=== PATIENT | female | born 1965 ===

== ENCOUNTER 2017-08-11 08:40 | Observation (INO) | payer OTHER ==
[2017-08-11] MEDS ORDERED: Aspirin 325 mg EC Tablets PO STA (08:56)
[2017-08-11] MEDS ORDERED: Nitroglycerin 2% Ointment Foilpak UD TOP STA (08:56)
--- NOTE | 2017-08-11 08:56 | C.PDOC ---
History Of Present Illness NEW ONSET CP SINCE LAST NIGHT. CONSTANT, PERSIST NO ASSOC W ACTIVITY EATING OR MOVEMENT. L SIDED RADIATION BACK. DENIES HO PRIOR CAD. +ASSOC NAUSEA, NOW RESOLVED. EXAM NEG Time Seen by Provider: 08/11/17 08:49 History Per: Patient History/Exam Limitations: no limitations Onset/Duration Of Symptoms: Days Current Symptoms Are (Timing): Still Present Associated Symptoms: Nausea. denies: Diaphoresis Recent travel outside of the [place]: No Past Medical History Reviewed: Historical Data, Nursing Documentation, Vital Signs Vital Signs: Last Vital Signs Temp 98.3 F 08/11/17 08:53 Pulse 94 H 08/11/17 08:53 Resp 16 08/11/17 08:53 BP 157/96 H 08/11/17 08:53 Pulse Ox 98 08/11/17 09:08 - Medical History PMH: No Chronic Diseases Family History: States: Unknown Family Hx - Social History Hx Alcohol Use: Yes Hx Substance Use: No - Immunization History Hx Tetanus Toxoid Vaccination: Yes Hx Influenza Vaccination: Yes Hx Pneumococcal Vaccination: Yes Review Of Systems Except As Marked, All Systems Reviewed And Found Negative. Constitutional: Negative for: Fever, Chills Cardiovascular: Positive for: Chest Pain. Negative for: Palpitations Respiratory: Negative for: Cough, Shortness of Breath Gastrointestinal: Positive for: Nausea (RESOLVED). Negative for: Vomiting, Abdominal Pain Physical Exam - Physical Exam Appears: Non-toxic, No Acute Distress Skin: Normal Color, Warm, Dry Head: Atraumatic, Normacephalic Oral Mucosa: Moist Chest: Symmetrical Cardiovascular: Rhythm Regular Respiratory: Normal Breath Sounds, No Accessory Muscle Use, No Rales, No Rhonchi , No Wheezing Gastrointestinal/Abdominal: Soft, No Tenderness, No Guarding, No Rebound Back: Normal Inspection Extremity: Normal ROM, Capillary Refill (< 2 SEC.) Neurological/Psych: Oriented x3, Normal Speech, Normal Cognition ED Course And Treatment - Laboratory Results Result Diagrams: 08/11/17 09:36 08/11/17 09:36 ECG: Interpreted By Me ECG Rhythm: Sinus Rhythm ECG Interpretation: No Changes From Prior Rate From EC (bpm) O2 Sat by Pulse Oximetry: 98 (RA) Pulse Ox Interpretation: Normal - Radiology CXR: Interpreted by Me CXR Interpretation: Yes: No Acute Disease Progress - Re-Evaluation Re-evaluation Note: 08/11/17 10:[address] CM WILL ADMIT - Data Reviewed Data Reviewed: Lab, Diagnostic imaging, EKG, Old records Disposition Counseled Patient/Family Regarding: Studies Performed, Diagnosis - Disposition Disposition: HOSPITALIZED Disposition Time: 10:41 Condition: STABLE - POA Present On Arrival: Poor Glycemic Control - Clinical Impression Clinical Impression: Chest pain - Scribe Statement The provider has reviewed the documentation as recorded by the Scribe SM All medical record entries made by the Scribe were at my direction and personally dictated by me. I have reviewed the chart and agree that the record accurately reflects my personal performance of the history, physical exam, medical decision making, and the department course for this patient. I have also personally directed, reviewed, and agree with the discharge instructions and disposition. Decision To Admit - Pt Status Changed To: Hospital Disposition Of: Observation - . Bed Request Type: Telemetry Admitting Physician: Juliana Cm Patient Diagnosis: Chest pain
[2017-08-11] MEDS ORDERED: Nitroglycerin 2% Ointment Foilpak UD TOP ONE (09:11)
[2017-08-11] MEDS ORDERED: Aspirin 325 mg EC Tablets PO ONE (09:12)
[2017-08-11 09:41] LABS: BASO # 0.1 K/uL (0.0-0.2); EOS # 0.2 K/uL (0.0-0.7); EOS % 2.4 % (0.0-4.0); LYMPH # 2.5 K/uL (1.0-4.3); LYMPH % 29.2 % (20.0-40.0); MEAN CELL VOLUME 84.3 fL (81.0-99.0); MEAN CORPUSCULAR HEMOGLOBIN 28.7 pg (27.0-31.0); MEAN PLATELET VOLUME 10.6 fL (7.2-11.7); MONO # 0.5 K/uL (0.0-0.8); MONO % 6.3 % (0.0-10.0); RED CELL DISTRIBUTION WIDTH 13.2 % (11.5-14.5); WHITE BLOOD COUNT 8.7 K/uL (4.8-10.8)
[2017-08-11 09:54] LABS: CHLORIDE 105 mmol/L (98-107); SODIUM 139 mmol/L (132-148)
[2017-08-11 09:55] LABS: POTASSIUM 4.6 mmol/L (3.6-5.2)
[2017-08-11 09:57] LABS: ALB/GLOB RATIO 1.5 (1.0-2.1); ALKALINE PHOSPHATASE 84 U/L (38-126); ALT/SGPT 90 U/L (9-52); AST/SGOT 91 U/L (14-36); BILIRUBIN,TOTAL 0.8 mg/dL (0.2-1.3); BLOOD UREA NITROGEN 6 mg/dL (7-17); CALCIUM 8.9 mg/dl (8.6-10.4); CARBON DIOXIDE 23 mmol/L (22-30); GFR AFRICAN-AMERICAN > 60; GLUCOSE,RANDOM 144 mg/dL (65-105)
--- NOTE | 2017-08-11 10:39 | RAD ---
PROCEDURE: CHEST RADIOGRAPH, 1 VIEW HISTORY: chest pain COMPARISON: None available. FINDINGS: LUNGS: Mild venous congestion. PLEURA: No pneumothorax or pleural fluid seen. CARDIOVASCULAR: Normal. OSSEOUS STRUCTURES: No significant abnormalities. VISUALIZED UPPER ABDOMEN: Normal. OTHER FINDINGS: None. IMPRESSION: Mild venous congestion.
--- NOTE | 2017-08-11 13:11 | CP.PCM.HP ---
<Na Umaña - Last Filed: 08/11/17 19:14> History of Present Illness - History of Present Illness History of Present Illness: Patient is a 52 y/o F with PMH of DM and HTN presents to the ED with chest pain for the past 2 days. The pain started yesterday 7:30 am while resting at home. Today she decided to come to ER because the pain has been constant with pressure localized on the left side of the chest. She admitted to radiation of pain around the left shoulder, posterior region of scapula and pain traveling down the left arm with tingling in the fingers. The worst pain level was yesterday at 9/10 intensity and today the pain is 6/10. Today the pain is described more pressure like rather than sharp pain. When pain started initially she felt Nauseous/Diaphores/SULLIVAN/Weakness/SOB/Palpitation/Back pain/Leg pain. Patient denies any f/c/v/d/c/recent travel or sickness. Patient was seen in the ER one year ago for similar episode was discharged because CA was ruled out. PMH: HTN, HLD, DM Allergies: NKDA Medication: Insulin, glipizide PSH: Tubal [id number] Family Hx: Mother of natural cause, Sister CVA Social Hx: Smokes 1 cigarette for past 3 years, drinks alcohol socially, not employed, lives with BF Present on Admission - Present on Admission Any Indicators Present on Admission: No Review of Systems - Review of Systems All systems: reviewed and no additional remarkable complaints except (as per HPI ) Past Patient History - Infectious Disease Hx of Infectious Diseases: None - Past Social History Smoking Status: Light Smoker < 10 Cigarettes Daily - CARDIAC Hx Circulatory Problems: Yes - ENDOCRINE/METABOLIC Hx Diabetes Mellitus Type 2: Yes - PSYCHIATRIC Hx Substance Use: No - SURGICAL HISTORY Hx Surgeries: No - ANESTHESIA Hx Anesthesia: No Meds Allergies/Adverse Reactions: Allergies Allergy/AdvReac Type Severity Reaction Status Date / Time No Known Allergies Allergy Verified 01/01/16 03:45 Results - Vital Signs Recent Vital Signs: Last Vital Signs Temp 98.3 F 08/11/17 08:53 Pulse 94 H 08/11/17 08:53 Resp 16 08/11/17 08:53 BP 157/96 H 08/11/17 08:53 Pulse Ox 98 08/11/17 10:41 - Labs Result Diagrams: 08/11/17 09:36 08/11/17 09:36 Assessment & Plan - Assessment and Plan (Free Text) Assessment: Chest pain * IDA score 3 (CAD risk factors; ASA; Chest pain) * observation on telemetry * ASA 325 mg in ED; ASA 81 mg PO QD * lisinopril 2.5 PO QD (hold if SBP <100 or HR < 60) * Metoprolol 12.5 PO Q12 * O2 2L PRN * F/U HbA1c, TSH, lipid panel, UDS, Echo, NIKHIL x2 with EKG, D-Dimer * Consult Cardio (Dr. Rosas) Diabetes * F/U A1c and lipid panel as above * ISS * Accuchecks QACHS HTN * Monitor vitals PPX * Lovenox 40 mg SC QD * Pepcid 20 mg PO BID <Juliana Evans V - Last Filed: 08/11/17 23:57> Results - Vital Signs Recent Vital Signs: Last Vital Signs Temp 98.4 F 08/11/17 15:12 Pulse 90 08/11/17 15:12 Resp 20 08/11/17 15:12 BP 110/69 08/11/17 15:12 Pulse Ox 95 08/11/17 15:12 - Labs Result Diagrams: 08/11/17 09:36 08/11/17 09:36 Labs: Laboratory Results - last 24 hr 08/11/17 08/11/17 08/11/17 14:45 15:13 15:13 D-Dimer, Quantitative < 200 POC Glucose (mg/dL) Total Creatine Kinase 57 CK-MB (Mass) 0.36 Troponin I, Quant < 0.0120 Urine Opiates Screen Negative Urine Methadone Screen Negative Ur Barbiturates Screen Negative Ur Phencyclidine Scrn Negative Ur Amphetamines Screen Negative U Benzodiazepines Scrn Negative U Oth Cocaine Metabols Negative U Cannabinoids Screen Negative 08/11/17 08/11/17 16:43 21:02 D-Dimer, Quantitative POC Glucose (mg/dL) 131 H 269 H Total Creatine Kinase CK-MB (Mass) Troponin I, Quant Urine Opiates Screen Urine Methadone Screen Ur Barbiturates Screen Ur Phencyclidine Scrn Ur Amphetamines Screen U Benzodiazepines Scrn U Oth Cocaine Metabols U Cannabinoids Screen Attending/Attestation - Attestation I have personally seen and examined this patient.: Yes I have fully participated in the care of the patient.: Yes I have reviewed all pertinent clinical information: Yes Notes (Text): Patient seen in [facility] Bed 12 in the emergency room at 12:20PM and discussed admitting orders with medicine manager of internal. Patient reporting chest pain which occurred all day prior to admission radiating to the left chest and down the arm. Patient reports she took aspirin yesterday. Patient reports chest pain varies with breathing, movement, and hurts without touching the chest pain. Patient appeared to have echocardiogram 2 years ago but cannot recall where or when. Patient has history of diabetes. Patient denies family hx of cardiac complaints. Patient's cardiac risk factors: DM, HTN, current smoker, used aspirin at home, and chest pain during. Discussed admitting orders in detail with medicine manager of internal. Assessment/Plan 1) Chest pain * IDA score 3 (CAD risk factors; ASA; Chest pain) * observation on telemetry * ASA 325 mg in ED; ASA 81 mg PO QDaily * Start lisinopril 2.5 PO QD (hold if SBP <100) * Start Metoprolol 12.5 PO Q12H (hold SBP<100 and HR<60) * Start Crestor 10mg POqHS * O2 2L PRN * F/U HbA1c, TSH, lipid panel, UDS, Echocardiogram, NIKHIL x2 with EKG, Q 6 hours apart, D-Dimer * Consult Cardio (Dr. Rosas) national secretary-->help appreciated 2) Diabetes * F/U A1c and lipid panel in AM * Novolog sliding scale ISS * Accuchecks QACHS 3) Hypertension * Monitor vitals * Start lisinopril 2.5 PO QD (hold if SBP <100) * Start Metoprolol 12.5 PO Q12H (hold SBP<100 and HR<60) 4) PPX * Lovenox 40 mg SC QDaily for DVT ppx * Pepcid 20 mg PO BID for GI ppx
[2017-08-11] MEDS: Enoxaparin 40 mg Syringe SC SCH (15:19)
[2017-08-11 17:13] VITALS: RESP 20
[2017-08-11] MEDS: (Novolog) Insulin Aspart, Recombinant 100 u/ml 10 ml vial SC SCH ×2 (17:15→21:57)
--- NOTE | 2017-08-11 19:39 | CARD ---
APPROVED REPORT EXAM: Two-dimensional and M-mode echocardiogram with Doppler and color Doppler. Other Information Quality : GoodRhythm : NSR INDICATION Chest Pain RISK FACTORS Hypertension Diabetes 2D DIMENSIONS IVSd1.0 (0.7-1.1cm)LVDd4.3 (3.9-5.9cm) PWd1.1 (0.7-1.1cm)LVDs3.1 (2.5-4.0cm) FS (%) 27.1 %LVEF (%)55.1 (>50%) M-Mode DIMENSIONS Left Atrium (MM)3.67 (2.5-4.0cm)Aortic Root3.29 (2.2-3.7cm) Aortic Cusp Exc.2.19 (1.5-2.0cm) Mitral Valve MV E Dgxagncu77.3cm/sMV A Brcjybsn37.7cm/sE/A ratio0.7 TDI E/Lateral E'0.0E/Medial E'0.0 Tricuspid Valve TR Peak Dbnjwxrc690jh/sTR Peak Gr.[id number] <Conclusion> tds. poor window. normal size la,lv & ra rv. normal lv wall motion,thickness,systolic funciton with lvef of 6-55-60%. lv diastolic dysfunciton grade one. sclerotic trileaflet aortic valve. mild mac. mild mr,tr with normal pulmonary pressures. sclerotic aortic root. no pericardial effusion.
[2017-08-12 08:00] VITALS: O2SAT 97
[2017-08-12] MEDS: (Novolog) Insulin Aspart, Recombinant 100 u/ml 10 ml vial SC SCH ×2 (08:30→13:11)
[2017-08-12 08:41] LABS: THYROID STIMULATING HORMONE 4.83 mIU/L (0.46-4.68)
[2017-08-12] MEDS: Enoxaparin 40 mg Syringe SC SCH (10:23)
[2017-08-12 11:20] LABS: BASO # 0.1 K/uL (0.0-0.2); BASO % 0.9 % (0.0-2.0); EOS # 0.2 K/uL (0.0-0.7); EOS % 2.3 % (0.0-4.0); HEMATOCRIT 40.8 % (34.0-47.0); LYMPH # 2.1 K/uL (1.0-4.3); LYMPH % 31.4 % (20.0-40.0); MEAN CELL VOLUME 85.2 fL (81.0-99.0); MEAN CORPUSCULAR HEMOGLOBIN 28.7 pg (27.0-31.0); MEAN CORPUSCULAR HGB CONC 33.7 g/dL (33.0-37.0); MEAN PLATELET VOLUME 11.5 fL (7.2-11.7); MONO # 0.5 K/uL (0.0-0.8); MONO % 7.4 % (0.0-10.0); NRBC % 0.1 % (0.0-2.0); RED CELL DISTRIBUTION WIDTH 13.3 % (11.5-14.5); WHITE BLOOD COUNT 6.6 K/uL (4.8-10.8)
[2017-08-12 11:24] LABS: ALB/GLOB RATIO 1.3 (1.0-2.1); ALKALINE PHOSPHATASE 85 U/L (38-126); ALT/SGPT 92 U/L (9-52); AST/SGOT 74 U/L (14-36); BILIRUBIN,TOTAL 0.7 mg/dL (0.2-1.3); BLOOD UREA NITROGEN 10 mg/dL (7-17); CARBON DIOXIDE 25 mmol/L (22-30); CHLORIDE 100 mmol/L (98-107); GFR AFRICAN-AMERICAN > 60; GLUCOSE,RANDOM 301 mg/dL (65-105); MAGNESIUM 1.8 mg/dL (1.6-2.3); PHOSPHOROUS 3.5 mg/dL (2.5-4.5); POTASSIUM 4.7 mmol/L (3.6-5.2); SODIUM 138 mmol/L (132-148); TOTAL PROTEIN 6.7 g/dL (6.3-8.3)
--- NOTE | 2017-08-12 13:06 | CARD ---
APPROVED REPORT EKG Measurement Heart [id number] <Conclusion> Normal sinus rhythm Prolonged QT Abnormal ECG
[2017-08-12 16:01] VITALS: BP 146/87; PULSE 90; TEMP 98
--- NOTE | 2017-08-12 18:22 | CP.PCM.DIS ---
<Na Umaña - Last Filed: 08/12/17 18:19> Provider - Provider Date of Admission: 08/11/17 11:00 Attending physician: Juliana Evans DO Consults: Dr. Rosas Time Spent in preparation of Discharge (in minutes): 35 Diagnosis - Discharge Diagnosis (1) Chest pain Status: Acute Comment: for more details please see summary Hospital Course - Lab Results Lab Results: Most Recent Lab Values WBC 6.6 K/uL (4.8-10.8) 08/12/17 11:12 RBC 4.78 Mil/uL (3.80-5.20) 08/12/17 11:12 Hgb 13.7 g/dL (11.0-16.0) 08/12/17 11:12 Hct 40.8 % (34.0-47.0) 08/12/17 11:12 MCV 85.2 fL (81.0-99.0) 08/12/17 11:12 MCH 28.7 pg (27.0-31.0) 08/12/17 11:12 MCHC 33.7 g/dL (33.0-37.0) 08/12/17 11:12 RDW 13.3 % (11.5-14.5) 08/12/17 11:12 Plt Count 170 K/uL (130-400) 08/12/17 11:12 MPV 11.5 fL (7.2-11.7) 08/12/17 11:12 Neut % (Auto) 58.0 % (50.0-75.0) 08/12/17 11:12 Lymph % (Auto) 31.4 % (20.0-40.0) 08/12/17 11:12 [place] % (Auto) 7.4 % (0.0-10.0) 08/12/17 11:12 Eos % (Auto) 2.3 % (0.0-4.0) 08/12/17 11:12 Baso % (Auto) 0.9 % (0.0-2.0) 08/12/17 11:12 Neut # 3.8 K/uL (1.8-7.0) 08/12/17 11:12 Lymph # 2.1 K/uL (1.0-4.3) 08/12/17 11:12 [place] # 0.5 K/uL (0.0-0.8) 08/12/17 11:12 Eos # 0.2 K/uL (0.0-0.7) 08/12/17 11:12 Baso # 0.1 K/uL (0.0-0.2) 08/12/17 11:12 PT 10.8 SECONDS (9.7-12.2) 08/11/17 09:36 INR 1.0 08/11/17 09:36 APTT 30 SECONDS (21-34) 08/11/17 09:36 D-Dimer, Quantitative < 200 ng/mlDDU (0-243) 08/11/17 15:13 Sodium 138 mmol/L (132-148) 08/12/17 11:12 Potassium 4.7 mmol/L (3.6-5.2) 08/12/17 11:12 Chloride 100 mmol/L (98-107) 08/12/17 11:12 Carbon Dioxide 25 mmol/L (22-30) 08/12/17 11:12 Anion Gap 17 (10-20) 08/12/17 11:12 BUN 10 mg/dL (7-17) 08/12/17 11:12 Creatinine 0.6 MG/DL (0.7-1.2) L 08/12/17 11:12 Est GFR ( Amer) > 60 08/12/17 11:12 Est GFR (Non-Af Amer) > 60 08/12/17 11:12 POC Glucose (mg/dL) 319 mg/dL (65-110) H 08/12/17 16:48 Random Glucose 301 mg/dL (65-105) H 08/12/17 11:12 Hemoglobin A1c 8.7 % (4.2-6.5) H 08/12/17 12:37 Calcium 9.0 mg/dl (8.6-10.4) 08/12/17 11:12 Phosphorus 3.5 mg/dL (2.5-4.5) 08/12/17 11:12 Magnesium 1.8 mg/dL (1.6-2.3) 08/12/17 11:12 Total Bilirubin 0.7 mg/dL (0.2-1.3) 08/12/17 11:12 AST 74 U/L (14-36) H 08/12/17 11:12 ALT 92 U/L (9-52) H 08/12/17 11:12 Alkaline Phosphatase 85 U/L (38-126) 08/12/17 11:12 Total Creatine Kinase 47 U/L (30-135) 08/11/17 23:55 CK-MB (Mass) 0.29 ng/mL (0.0-3.38) 08/11/17 23:55 Troponin I < 0.0120 ng/mL (0.00-0.120) 08/11/17 09:36 Troponin I, Quant < 0.0120 ng/mL (0.00-0.120) 08/11/17 23:55 Total Protein 6.7 g/dL (6.3-8.3) 08/12/17 11:12 Albumin 3.8 g/dL (3.5-5.0) 08/12/17 11:12 Globulin 2.9 gm/dL (2.2-3.9) 08/12/17 11:12 Albumin/Globulin Ratio 1.3 (1.0-2.1) 08/12/17 11:12 Triglycerides 161 mg/dL (0-149) H D 08/12/17 07:40 Cholesterol 157 mg/dL (0-199) 08/12/17 07:40 LDL Cholesterol Direct 97 mg/dL (0-129) 08/12/17 07:40 HDL Cholesterol 47 mg/dL (30-70) 08/12/17 07:40 TSH 3rd Generation 4.83 mIU/L (0.46-4.68) H 08/12/17 07:40 Urine Opiates Screen Negative (NEGATIVE) 08/11/17 14:45 Urine Methadone Screen Negative (NEGATIVE) 08/11/17 14:45 Ur Barbiturates Screen Negative (NEGATIVE) 08/11/17 14:45 Ur Phencyclidine Scrn Negative (NEGATIVE) 08/11/17 14:45 Ur Amphetamines Screen Negative (NEGATIVE) 08/11/17 14:45 U Benzodiazepines Scrn Negative (NEGATIVE) 08/11/17 14:45 U Oth Cocaine Metabols Negative (NEGATIVE) 08/11/17 14:45 U Cannabinoids Screen Negative (NEGATIVE) 08/11/17 14:45 - Hospital Course Hospital Course: Upon admission: Patient is a 52 y/o F with PMH of DM and HTN presents to the ED with chest pain for the past 2 days. The pain started yesterday 7:30 am while resting at home. Today she decided to come to ER because the pain has been constant with pressure localized on the left side of the chest. She admitted to radiation of pain around the left shoulder, posterior region of scapula and pain traveling down the left arm with tingling in the fingers. The worst pain level was yesterday at 9/10 intensity and today the pain is 6/10. Today the pain is described more pressure like rather than sharp pain. When pain started initially she felt Nauseous/Diaphores/SULLIVAN/Weakness/SOB/Palpitation/Back pain/Leg pain. Patient denies any f/c/v/d/c/recent travel or sickness. Patient was seen in the ER one year ago for similar episode was discharged because [place] was ruled out. Hospital Course: The patient was admitted for chest pain to rule out myocardial infarction. NIKHIL neg x3. EKG negative x3. The echocardiogram results report normal LA, LV, RA, RV with ejection fraction of 55-60 % without any pericardial effusion. LV diastolic dysfunction grade I. Sclerotic aortic root and trileaflet aortic valve. Mild MAC. Mild MR and TR. D-dimer negative. UDS negative. Elevated triglycerides and TSH. Upon discharge: Patient was seen and evaluated at bedside, denies fever,chills, SULLIVAN, CP, SOB, N/V /D/C, dysuria, and LE pain and swelling. Patient is stable for discharge per Dr. Evans Patient is to start new medications for her blood pressure as follows: Lisinopril 2.5 mg PO QD; Metoprolol 12.5 mg PO BID. Patient is to start the following for her cholesterol : Simvastatin 20 mg PO QD. Patient should also start Aspirin 81 mg PO QD. Patient is to f/u with the [facility] for routine healthcare. Phone # . Please note this is a summary of events. For more details please see complete medical record. - Date & Time of H&P Date of H&P: 08/11/17 Time of H&P: 13:11 Discharge Exam - Head Exam Head Exam: ATRAUMATIC, NORMAL INSPECTION, NORMOCEPHALIC - Eye Exam Eye Exam: EOMI - ENT Exam ENT Exam: Mucous Membranes Moist - Respiratory Exam Respiratory Exam: UNREMARKABLE - Cardiovascular Exam Cardiovascular Exam: REGULAR RHYTHM, +S1, +S2 - GI/Abdominal Exam GI & Abdominal Exam: Normal Bowel Sounds, Unremarkable - Extremities Exam Extremities exam: normal inspection - Neurological Exam Neurological exam: Alert, Oriented x3 - Psychiatric Exam Psychiatric exam: Normal Affect, Normal Mood - Skin Skin Exam: Dry, Intact, Normal Color, Warm Discharge Plan - Discharge Medications Prescriptions: Aspirin [Aspirin Chewable] 81 mg PO DAILY #30 tab Lisinopril [Zestril] 2.5 mg PO DAILY #30 tab Metoprolol Tartrate [Lopressor] 12.5 mg PO Q12 #60 tab Simvastatin 20 mg PO DAILY #30 tablet - Follow Up Plan Condition: STABLE Disposition: HOME/ ROUTINE Instructions: Metoprolol (By mouth), Lisinopril (By mouth), Aspirin (By mouth) , Simvastatin (By mouth), Chest Pain (DC), Heart Healthy Diet (DC), Diabetic Foot Care (DC), Basic Carbohydrate Counting (DC), Meal Planning with the Plate Method (DC), Meal Planning with Diabetes Exchanges (DC) Additional Instructions: Patient is to start new medications for her blood pressure as follows: Lisinopril 2.5 mg PO QD; Metoprolol 12.5 mg PO BID Patient is to start the following for her cholesterol: Simvastatin 20 mg PO QD Patient should also start Aspirin 81 mg PO QD Patient is to f/u with the [facility] for routine healthcare. Phone # Referrals: [facility] [Outside] <Juliana Evans V - Last Filed: 08/12/17 23:09> Provider - Provider Date of Admission: 08/11/17 11:00 Attending physician: Juliana Evans DO [facility] Course - Lab Results Lab Results: Most Recent Lab Values WBC 6.6 K/uL (4.8-10.8) 08/12/17 11:12 RBC 4.78 Mil/uL (3.80-5.20) 08/12/17 11:12 Hgb 13.7 g/dL (11.0-16.0) 08/12/17 11:12 Hct 40.8 % (34.0-47.0) 08/12/17 11:12 MCV 85.2 fL (81.0-99.0) 08/12/17 11:12 MCH 28.7 pg (27.0-31.0) 08/12/17 11:12 MCHC 33.7 g/dL (33.0-37.0) 08/12/17 11:12 RDW 13.3 % (11.5-14.5) 08/12/17 11:12 Plt Count 170 K/uL (130-400) 08/12/17 11:12 MPV 11.5 fL (7.2-11.7) 08/12/17 11:12 Neut % (Auto) 58.0 % (50.0-75.0) 08/12/17 11:12 Lymph % (Auto) 31.4 % (20.0-40.0) 08/12/17 11:12 [place] % (Auto) 7.4 % (0.0-10.0) 08/12/17 11:12 Eos % (Auto) 2.3 % (0.0-4.0) 08/12/17 11:12 Baso % (Auto) 0.9 % (0.0-2.0) 08/12/17 11:12 Neut # 3.8 K/uL (1.8-7.0) 08/12/17 11:12 Lymph # 2.1 K/uL (1.0-4.3) 08/12/17 11:12 [place] # 0.5 K/uL (0.0-0.8) 08/12/17 11:12 Eos # 0.2 K/uL (0.0-0.7) 08/12/17 11:12 Baso # 0.1 K/uL (0.0-0.2) 08/12/17 11:12 PT 10.8 SECONDS (9.7-12.2) 08/11/17 09:36 INR 1.0 08/11/17 09:36 APTT 30 SECONDS (21-34) 08/11/17 09:36 D-Dimer, Quantitative < 200 ng/mlDDU (0-243) 08/11/17 15:13 Sodium 138 mmol/L (132-148) 08/12/17 11:12 Potassium 4.7 mmol/L (3.6-5.2) 08/12/17 11:12 Chloride 100 mmol/L (98-107) 08/12/17 11:12 Carbon Dioxide 25 mmol/L (22-30) 08/12/17 11:12 Anion Gap 17 (10-20) 08/12/17 11:12 BUN 10 mg/dL (7-17) 08/12/17 11:12 Creatinine 0.6 MG/DL (0.7-1.2) L 08/12/17 11:12 Est GFR ( Amer) > 60 08/12/17 11:12 Est GFR (Non-Af Amer) > 60 08/12/17 11:12 POC Glucose (mg/dL) 319 mg/dL (65-110) H 08/12/17 16:48 Random Glucose 301 mg/dL (65-105) H 08/12/17 11:12 Hemoglobin A1c 8.7 % (4.2-6.5) H 08/12/17 12:37 Calcium 9.0 mg/dl (8.6-10.4) 08/12/17 11:12 Phosphorus 3.5 mg/dL (2.5-4.5) 08/12/17 11:12 Magnesium 1.8 mg/dL (1.6-2.3) 08/12/17 11:12 Total Bilirubin 0.7 mg/dL (0.2-1.3) 08/12/17 11:12 AST 74 U/L (14-36) H 08/12/17 11:12 ALT 92 U/L (9-52) H 08/12/17 11:12 Alkaline Phosphatase 85 U/L (38-126) 08/12/17 11:12 Total Creatine Kinase 47 U/L (30-135) 08/11/17 23:55 CK-MB (Mass) 0.29 ng/mL (0.0-3.38) 08/11/17 23:55 Troponin I < 0.0120 ng/mL (0.00-0.120) 08/11/17 09:36 Troponin I, Quant < 0.0120 ng/mL (0.00-0.120) 08/11/17 23:55 Total Protein 6.7 g/dL (6.3-8.3) 08/12/17 11:12 Albumin 3.8 g/dL (3.5-5.0) 08/12/17 11:12 Globulin 2.9 gm/dL (2.2-3.9) 08/12/17 11:12 Albumin/Globulin Ratio 1.3 (1.0-2.1) 08/12/17 11:12 Triglycerides 161 mg/dL (0-149) H D 08/12/17 07:40 Cholesterol 157 mg/dL (0-199) 08/12/17 07:40 LDL Cholesterol Direct 97 mg/dL (0-129) 08/12/17 07:40 HDL Cholesterol 47 mg/dL (30-70) 08/12/17 07:40 TSH 3rd Generation 4.83 mIU/L (0.46-4.68) H 08/12/17 07:40 Urine Opiates Screen Negative (NEGATIVE) 08/11/17 14:45 Urine Methadone Screen Negative (NEGATIVE) 08/11/17 14:45 Ur Barbiturates Screen Negative (NEGATIVE) 08/11/17 14:45 Ur Phencyclidine Scrn Negative (NEGATIVE) 08/11/17 14:45 Ur Amphetamines Screen Negative (NEGATIVE) 08/11/17 14:45 U Benzodiazepines Scrn Negative (NEGATIVE) 08/11/17 14:45 U Oth Cocaine Metabols Negative (NEGATIVE) 08/11/17 14:45 U Cannabinoids Screen Negative (NEGATIVE) 08/11/17 14:45 Attending/Attestation - Attestation I have personally seen and examined this patient.: Yes I have fully participated in the care of the patient.: Yes I have reviewed all pertinent clinical information, including history, physical exam and plan: Yes Notes (Text): Patient seen, examined and case discussed with day-time resident. Patient seen this morning on rounds. Patient is pain free this morning. Reviewed echo and blood work results with the patient. Patient advised she will need an cardiology referral and for outpatient exercise stress test given she has cardiac risk factors. Patient is an established patient of the [facility] advised to follow-up within one week post-hospitalization and f/u with cardiology for outpatient stress test. Upon discharge: Patient is to start new medications for her blood pressure as follows: * Lisinopril 2.5 mg PO QDaily (30 tabs/no refills) * Metoprolol 12.5 mg PO BID (60 tabs/no refulls) Patient to start medication to help control cholestrol in light of diabetes * Simvastatin 20mg POqHS (30 tabs/no refills) * Diet and exercise modifications Aspirin 81mg PO daily as cardioprotective prophylaxis in light of risk factors. Patient to resume home medications for diabetes and f/u PMD for further management. This is a summary of patient's hospitalization. Please review EMR for further details. Discharge diagnoses: 1) Chest pain-->resolved * IDA score 3 (CAD risk factors; ASA; Chest pain) * observation on telemetry * ASA 325 mg in ED; ASA 81 mg PO QDaily * Start lisinopril 2.5 PO QD (hold if SBP <100) * Start Metoprolol 12.5 PO Q12H (hold SBP<100 and HR<60) * Start Crestor 10mg POqHS-->switch to Simvastatin due to affordability * O2 2L PRN * Discussed HbA1c, TSH, lipid panel result with the the patient; UDS: negative, Echocardiogram, negative d-dimer, NIKHIL X3: negative, EKG: NSR * Consult Cardio (Dr. Rosas) shell mold bonder-->help appreciated; outpatient stress test 2) Diabetes * A1c and Lipid panel results discussed with the patient * Novolog sliding scale ISS * Accuchecks QACHS 3) Hypertension * Monitor vitals * Start lisinopril 2.5 PO QD (hold if SBP <100) * Start Metoprolol 12.5 PO Q12H (hold SBP<100 and HR<60) 4) PPX * Lovenox 40 mg SC QDaily for DVT ppx * Pepcid 20 mg PO BID for GI ppx
--- NOTE | 2017-08-12 19:31 | CON ---
CARDIOLOGY CONSULTATION DATE: REASON FOR CONSULTATION: Chest pain. HISTORY OF PRESENT ILLNESS: The patient is a 52-year-old female who has a history of hypertension and diabetes mellitus and no known prior cardiac history. She was admitted because of left-sided chest pain radiating to the back and left upper abdomen associated with nausea. The patient is currently chest pain free. The patient denies any dizziness or diaphoresis apart from chest discomfort. MEDICATIONS: Aspirin 81 mg once a day, Lopressor 12.5 mg twice a day, Lovenox 40 mg subcutaneous once a day, Pepcid 20 mg once a day, Vistaril 2.5 mg once a day. REVIEW OF SYSTEMS: No fever or chills. No diarrhea. No palpitation. No headache or syncope. PHYSICAL EXAMINATION: GENERAL: The patient is middle aged female who does not appear to be in acute distress. VITAL SIGNS: Blood pressure 137/76, heart rate 87, temperature 98.2 and respirations 20. HEENT: Normocephalic. NECK: No JVD. CHEST: Clear. HEART: Regular. ABDOMEN: Soft. EXTREMITIES: No edema. No calf tenderness. LABORATORIES: CBC entirely within normal limits. SMA-7 is within normal limits except for glucose of 301, creatinine 0.6. Three sets of troponins are negative. Total cholesterol is 157 within normal limits. Triglycerides are elevated at 161. PT, PTT, and D-dimer are within normal limits. EKG revealed normal sinus rhythm. Echocardiographic study revealed normal ejection fraction. Normal wall thickness and wall motion and grade 1 diastolic dysfunction. ASSESSMENT: 1. Atypical chest pain, myocardial infarction ruled out. 2. Uncontrolled diabetes mellitus. 3. Hypertriglyceridemia. 4. Hypertension. RECOMMENDATIONS: Continue current aspirin 81 mg once a day, Lopressor 12.5 mg twice a day, Pepcid 20 mg once a day, Vistaril 2.5 mg once a day. Consider an outpatient exercise stress test. Rohan Rosas MD
--- NOTE | 2017-08-13 13:42 | CARD ---
APPROVED REPORT EKG Measurement Heart [id number] CT 150P62 [id number] <Conclusion> Normal sinus rhythm Normal ECG
== END 2017-08-12 18:35 | disposition home or self-care (01) ==
LOC: C.ER 08:40 → C.9E 11:00 → C.6T 13:54
PROVIDERS: ADMIT Hospitalist; ATTEND Hospitalist
DX: R07.89 Other chest pain (principal); E78.1 Pure hyperglyceridemia; E78.5 Hyperlipidemia, unspecified; F17.210 Nicotine dependence, cigarettes, uncomplicated; I10 Essential (primary) hypertension; E11.65 Type 2 diabetes mellitus with hyperglycemia
CPT/HCPCS: 36415; 71010; 80053; 80061; 80324; 80345; 80346; 80349; 80353; 80358; 80361; 82948; 83036; 83735; 83992; 84100; 84443; 84484; 85025; 85378; 85610; 85730; 93005; 93306; 96372; 96374; 99285; G0378; J1650; J1885

== ENCOUNTER 2018-09-28 11:00 | Emergency (ER) | payer SELFPAY ==
[2018-09-28 11:00] VITALS: BMI 39.2
[2018-09-28 11:05] VITALS: RESP 18
[2018-09-28 11:49] LABS: BASO # 0.1 K/uL (0.0-0.2); BASO % 0.8 % (0.0-2.0); EOS # 0.3 K/uL (0.0-0.7); HEMOGLOBIN 13.5 g/dL (11.0-16.0); LYMPH # 2.4 K/uL (1.0-4.3); LYMPH % 26.2 % (20.0-40.0); MEAN CELL VOLUME 84.6 fL (81.0-99.0); MEAN CORPUSCULAR HEMOGLOBIN 28.9 pg (27.0-31.0); MEAN CORPUSCULAR HGB CONC 34.2 g/dL (33.0-37.0); MEAN PLATELET VOLUME 10.2 fL (7.2-11.7); MONO # 0.7 K/uL (0.0-0.8); MONO % 7.7 % (0.0-10.0); NEUT # 5.6 K/uL (1.8-7.0); NEUT % 62.3 % (50.0-75.0); NRBC % 0.1 % (0.0-2.0); RBC 4.68 Mil/uL (3.80-5.20); RED CELL DISTRIBUTION WIDTH 13.2 % (11.5-14.5)
--- NOTE | 2018-09-28 12:01 | C.PDOC ---
History Of Present Illness 53 year old female with a history of diabetes presents to the ED for evaluation of a headache that began yesterday. The patient reports the back of her head feels weird, notes visit to PMD today who sent her to the ED for further evaluation. Denies allergies to medications, trauma, fever, numbness, tingling, prior similar symptoms, and any other associated symptoms. HPI obtained using a black leather buffer. Time Seen by Provider: 09/28/18 11:08 Chief Complaint (Nursing): Headache History Per: Patient History/Exam Limitations: no limitations Onset/Duration Of Symptoms: Days Current Symptoms Are (Timing): Still Present Past Medical History Reviewed: Historical Data, Nursing Documentation, Vital Signs Vital Signs: Last Vital Signs Temp 98.7 F 09/28/18 11:02 Pulse 102 H 09/28/18 11:02 Resp 18 09/28/18 11:02 BP 142/79 09/28/18 11:02 Pulse Ox 98 09/28/18 11:02 - Medical History PMH: Denies: Chronic Kidney Disease Family History: States: Unknown Family Hx - Social History Hx Alcohol Use: Yes (social drinking) Hx Substance Use: No - Immunization History Hx Tetanus Toxoid Vaccination: No Hx Influenza Vaccination: No Hx Pneumococcal Vaccination: No Review Of Systems Constitutional: Negative for: Fever, Other (trauma. ) Neurological: Positive for: Headache. Negative for: Weakness, Numbness, Incoordination Physical Exam - Physical Exam Appears: Well, Non-toxic Skin: Normal Color, Warm, Dry Head: Atraumatic, Normacephalic Eye(s): bilateral: Normal Inspection Oral Mucosa: Moist Neck: Normal ROM, Supple Cardiovascular: Rhythm Regular, No Murmur Respiratory: Normal Breath Sounds, No Rales, No Rhonchi, No Wheezing Neurological/Psych: Oriented x3, Normal Speech, Normal Motor, Normal Sensation ED Course And Treatment - Laboratory Results Result Diagrams: 09/28/18 11:47 09/28/18 11:47 O2 Sat by Pulse Oximetry: 98 (RA) Pulse Ox Interpretation: Normal - CT Scan/US CT Head Other Rad Studies (CT/US): Read By Radiologist CT/US Interpretation: FINDINGS: HEMORRHAGE: No intracranial hemorrhage. BRAIN: No mass effect or edema. The gilman-white matter differentiation appears intact. Please note that MRI with diffusion imaging is more sensitive in the detection of acute ischemic event. VENTRICLES: No hydrocephalus. CALVARIUM: Unremarkable. PARANASAL SINUSES: Unremarkable as visualized. No significant inflammatory changes. MASTOID AIR CELLS: Unremarkable as visualized. No inflammatory changes. OTHER FINDINGS: None. IMPRESSION: No acute intracranial pathology identified. Progress Note: Plan: -CT Brain. Blood sent. -Reglan. On re-evaluation patient feels better, no neuro deficit, ambulatory, tolerates po. patient is stable to be d/c home with PMD follow up. Disposition - Disposition Disposition: HOME/ ROUTINE Disposition Time: 13:19 Condition: STABLE Additional Instructions: Follow up with your PMD within 1-2 days. Return to ED if feel worse. Instructions: Headache, Adult (DC) Forms: [employer] (German) Print Language: PORTUGUESE - Clinical Impression Clinical Impression: Headache - PA / HANDYPERSON / Resident Statement MD/DO has reviewed & agrees with the documentation as recorded. - Scribe Statement The provider has reviewed the documentation as recorded by the Scribe (Karyn Fuchs) All medical record entries made by the Scribe were at my direction and personally dictated by me. I have reviewed the chart and agree that the record accurately reflects my personal performance of the history, physical exam, medical decision making, and the department course for this patient. I have also personally directed, reviewed, and agree with the discharge instructions and disposition.
[2018-09-28 12:13] LABS: ALB/GLOB RATIO 1.4 (1.0-2.1); ALBUMIN 4.2 g/dL (3.5-5.0); BLOOD UREA NITROGEN 8 mg/dL (7-17); CALCIUM 9.4 mg/dl (8.6-10.4); GFR NON-AFRICAN AMERICAN > 60
[2018-09-28 12:42] LABS: ALT/SGPT 25 U/L (9-52); AST/SGOT 32 U/L (14-36)
--- NOTE | 2018-09-28 12:45 | CT ---
Date of service: 09/28/2018 PROCEDURE: CT HEAD WITHOUT CONTRAST. HISTORY: Headache COMPARISON: None available. TECHNIQUE: Axial computed tomography images were obtained through the head/brain without intravenous contrast. Radiation dose: Total exam DLP = 1208.61 mGy-cm. This CT exam was performed using one or more of the following dose reduction techniques: Automated exposure control, adjustment of the mA and/or kV according to patient size, and/or use of iterative reconstruction technique. FINDINGS: HEMORRHAGE: No intracranial hemorrhage. BRAIN: No mass effect or edema. The gilman-white matter differentiation appears intact. Please note that MRI with diffusion imaging is more sensitive in the detection of acute ischemic event. VENTRICLES: No hydrocephalus. CALVARIUM: Unremarkable. PARANASAL SINUSES: Unremarkable as visualized. No significant inflammatory changes. MASTOID AIR CELLS: Unremarkable as visualized. No inflammatory changes. OTHER FINDINGS: None. IMPRESSION: No acute intracranial pathology identified.
[2018-09-28 13:06] VITALS: BP 119/75; PULSE 67; TEMP 98.2
[2018-09-28 13:20] VITALS: O2SAT 98
== END 2018-09-28 13:39 | disposition home or self-care (01) ==
LOC: C.ER 11:00
DX: R51 Headache (principal); E11.9 Type 2 diabetes mellitus without complications
CPT/HCPCS: 70450; 80053; 85025; 85651; 96374; 99284; J2765

== ENCOUNTER 2018-12-11 07:33 | Outpatient (CLI) | payer SELFPAY | END 2018-12-11 07:34 | disposition home or self-care (01) | LOC: C.LAB 07:33 ==

== ENCOUNTER 2019-01-25 07:38 | Outpatient (CLI) | payer SELFPAY | END 2019-01-25 07:39 | disposition home or self-care (01) | LOC: C.LAB 07:38 | DX: E11.49 Type 2 diabetes mellitus with other diabetic neurological complication (principal); K76.0 Fatty (change of) liver, not elsewhere classified ==

== ENCOUNTER 2019-02-04 08:14 | Outpatient (CLI) | payer SELFPAY | END 2019-02-04 08:15 | disposition home or self-care (01) | LOC: C.CARD 08:14 | DX: R06.02 Shortness of breath (principal) ==

== ENCOUNTER 2019-03-30 07:36 | Outpatient (CLI) | payer SELFPAY | END 2019-03-30 07:37 | disposition home or self-care (01) | LOC: C.LAB 07:36 | DX: E11.9 Type 2 diabetes mellitus without complications (principal); E78.2 Mixed hyperlipidemia; K76.0 Fatty (change of) liver, not elsewhere classified ==

== ENCOUNTER 2019-04-21 07:51 | Outpatient (CLI) | payer SELFPAY | END 2019-04-21 07:52 | disposition home or self-care (01) | LOC: C.MAMMO 07:52 ==